=== PATIENT | female | born 1980 | race Caucasian/White ===

== ENCOUNTER 2021-03-19 02:27 | Emergency (ER) | payer OTHER, SELFPAY ==
[2021-03-19 02:28] VITALS: BP 143/88; PULSE 94; RESP 15; TEMP 37.2; O2SAT 100; BMI 28.5
--- NOTE | 2021-03-19 02:45 | EKG12_ITS ---
Test Reason : CP Blood Pressure : / mmHG Vent. Rate : 093 BPM Atrial Rate : 093 BPM P-R Int : 136 ms QRS Dur : 108 ms QT Int : 372 ms P-R-T Axes : 077 074 036 degrees QTc Int : 462 ms Normal sinus rhythm Nonspecific ST abnormality Abnormal ECG Confirmed by DIANELYS CERVANTES, KIM ([id number]), society editor NEAL RAMESH ([id number]) on 03/22/2021 2:50:42 PM Referred By: ÓSCAR Confirmed By:KIM IVORY MD
--- NOTE | 2021-03-19 02:46 | EDS_ITS ---
HPI History of Present Illness Chief Complaint: Chest Pain Informant: patient Onset/Context/Timing Onset: Month(s) (1) Activity at onset: gradual Timing: Intermittent Quality: Positive for Heaviness Location: Substernal Current Severity: Moderate Maximum Severity: Moderate Worsened By: - (Tonight worse by lying supine); Not Worsened By Breathing Relieved By: - (Sitting up) Associated Symptoms: Positive for Nausea and Dyspnea (A little); Negative for Vomiting, Diaphoresis, Cough, Fever, Lightheadedness and Palpitations Narrative Narrative: Chest discomfort has been off and on for the last month or so, it has been worse tonight. She noticed that it is better when she props herself up rather than lying down. Noticing some tingling in her fingers tonight, that is new. Has tried no medications for this prior to now except for Pepto which did not seem to make a big difference. Non-smoker, no recent travel or history of blood clots, no pain or swelling in 1 leg or the other, no family history of heart disease at young ages. CVD Risk Factors: Negative for Hypertension, Diabetes, Hypercholesterolemia, Family History 1' </=55 and Smoking PE Risk Factors: Negative for Recent Travel/Surgery, Recent Immobilization, Prior DVT or PE, Cancer and OCP + Smoking + >/=35 PFSH PFSH Medical History Mitral valve prolapse Home Medications bacitracin 1 applicatio TP TID #60 oint...g. 05/28/17 [Rx Last Taken Unknown] oxycodone-acetaminophen 1 - 2 tab PO Q4H PRN PRN #30 tab 05/28/17 [Rx Last Taken Unknown] pantoprazole [Protonix] 40 mg PO DAILY 28 Days #28 tab 03/19/21 [Rx Last Taken Unknown] Allergy/AdvReac Type Severity Reaction Status Date / Time No Known Allergies Allergy Verified 05/28/17 20:58 Social History Smoking Status: Never smoker ROS ROS ED Constitutional Constitutional ED: Denies chills or fever(s) Eyes Eyes: Denies change in vision or diplopia ENT ENT ED: Denies rhinorrhea or sore throat Cardiovascular Cardiovascular: Reports as per HPI and chest pain; Denies palpitations or racing heartbeat Respiratory/Chest Respiratory/Chest: Reports as per HPI and dyspnea; Denies cough Gastrointestinal Gastrointestinal: Denies abdominal pain, diarrhea, nausea or vomiting Genitourinary Genitourinary ED: Denies dysuria or hematuria Musculoskeletal Musculoskeletal: Denies back pain or neck pain Integumentary Denies abscess or rash Neurologic Neurologic: Denies headache(s) or weakness Psychiatric Psychiatric: Denies anxiety or suicidal thoughts EXAM Physical Exam Const Vital Signs: 03/19/21 02:28 03/19/21 02:34 03/19/21 03:24 Temperature 98.9 F Temperature Source Oral Pulse Rate 94 74 Respiratory Rate 15 22 H Respiratory Effort Normal Blood Pressure 143/88 H 113/81 H Blood Pressure Mean 106 91 Pulse Ox 100 99 Oxygen Delivery Method Room Air Room Air Positive well nourished and well developed General Appearance ED: well developed and NAD HEENT Reports moist mucous membranes normocephalic and atraumatic Eyes PERRL and EOMs intact bilaterally Neck full ROM and supple Resp normal respiratory effort and clear to auscultation bilaterally Cardio regular rate, regular rhythm and no murmurs Rate: Negative for tachycardic GI normal to inspection, nondistended, normoactive bowel sounds, non-tender and non-distended Auscultation: normoactive bowel sounds Palpation: soft Back/Spine no CVA tenderness General Back: other FROM Extremity normal to inspection and no calf tenderness General Extremety ED: Negative for edema, pulses abnormal or tenderness General Extremity: Negative for edema or pulses abnormal Neuro oriented x3, CN's II-XII intact bilaterally and no sensory deficits noted Sensorium / Orientation: awake and alert Motor Exam: strength 5/5 throughout Skin no rashes or lesions noted and no wounds Heart Score History: Moderately Suspicious ECG: Nonspecific Repolarization Age: </= 45 years Risk Factors: No Risk Factors Troponin: </= Normal Limit Score: 2 MDM MDM MDM Narrative Medical decision making narrative: Patient was given a GI cocktail which did improve her discomfort. It was still there a little. Given her negative work- up and symptoms that have been intermittent for several weeks, my suspicion is this is GI in etiology. She is low risk for follow-up. Her heart score is low, and given the symptoms for several weeks I do not think she needs to have a delta troponin tonight. She is comfortable taking a daily PPI and following up with her doctor. We discussed reasons to return. Lab Data Attestation: I reviewed the patient's lab results. Labs: Laboratory Results - last 24 hr 03/19/21 03/19/21 02:50 02:50 WBC 7.0 RBC 4.64 Hgb 14.5 Hct 41.6 MCV 89.7 MCH 31.3 MCHC 34.9 RDW Std Deviation 39.4 RDW Coeff of Julio C 12.1 Plt Count 313 MPV 9.3 Immature Gran % (Auto) 0.300 Neut % (Auto) 68.0 Lymph % (Auto) 22.6 [place] % (Auto) 7.1 Eos % (Auto) 1.4 Baso % (Auto) 0.6 Absolute Neuts (auto) 4.7 Absolute Lymphs (auto) 1.57 Nucleated RBC % 0 Sodium 139 Potassium 3.0 L Chloride 105 Carbon Dioxide 26.0 Anion Gap 8 BUN 10 Creatinine 0.86 Estim Creat Clear Calc 76.59 Est GFR (MDRD) Af Amer 95 Est GFR (MDRD) Non-Af 78 BUN/Creatinine Ratio 11.7 Glucose 113 H Calcium 9.8 Troponin I < 0.015 Radiography Chest X-Ray - ED: 1 View, Read by ED Physician, No Acute Disease and No Infiltrates Diagnostic Testing: Radiology Impression Chest X-Ray 03/19/21 03:37 IMPRESSION: Normal x-ray examination of the chest. Electronically Signed: Boris Manzo DO at 3:56 EDT Tel , Service support , EKG Initial EKG: Attestation: I personally reviewed and interpreted this EKG as follows: Interpretation: Sinus Rhythm, No Acute Injury Pattern and Non-Specific ST Changes (Leads V1 and II, and III, which can be normal variant. Normal axis and intervals.) Discharge Plan Triage Chief Complaint: Chest Pain ED Provider: Tomas Love Dx/Rx/DC Orders Clinical Impression: Chest pain, unspecified Instructions: ED Chest Pain, Noncardiac Prescriptions: New pantoprazole [Protonix] 40 mg tablet,delayed release (DR/EC) 40 mg PO DAILY 28 Days Qty: 28 RF: 0 No Action oxycodone-acetaminophen 1 TABLET tablet 1 - 2 tab PO Q4H PRN PRN (Reason: Pain) Qty: 30 RF: 0 bacitracin 28.4 GM ointment 1 applicatio TP TID Qty: 60 RF: 0 Primary Care Provider: Michael Bacon Referrals: Michael Bacon MD [Primary Care Provider] - 1-2 Weeks Disposition Disposition: Home, self care
[2021-03-19 02:57] LABS: Absolute Lymphocyte Count 1.57 X10^3/uL (0.83-4.51); Absolute Neutrophil Count 4.7 X10^3/uL (2.0-7.7); Basophil# 0.04 X10^3/uL; Basophil% 0.6 % (0-1); Eosinophils% 1.4 % (0-5); Hematocrit 41.6 % (37-47); Hemoglobin 14.5 g/dL (12.0-15.0); Lymphocyte # 1.57 X10^3/ul (0.83-4.51); Lymphocyte % 22.6 % (19-41); Mean Corp Hgb Conc 34.9 g/dL (32-36); Mean Corpuscular Hgb 31.3 pg (27.0-32.0); Mean Corpuscular Volume 89.7 fL (81-99); Mean Platelet Vol. 9.3 fl (6.2-12.0); Monocyte# 0.49 X10^3/uL; Monocyte% 7.1 % (0-10); NRBC Flagged by Analyzer 0 % (0-5); Neutrophil # 4.73 X10^3/uL (2.7-7.7); Platelet Count 313 K/mm3 (150-450); RBC Distribution Width CV 12.1 % (11.6-14.6); RBC Distribution Width SD 39.4 fl (35.1-43.9); Red Blood Count 4.64 M/mm3 (4.2-5.4)
[2021-03-19 03:14] LABS: Anion Gap 8 (5-15); BUN 10 mg/dL (7-18); BUN/Creat Ratio 11.7 RATIO (10-20); Calcium,Total 9.8 mg/dL (8.5-10.1); Chloride 105 mmol/L (98-107); Creatinine, Serum 0.86 mg/dL (0.55-1.02); EST Glomerular Filtration Rate 78 mL/min (>60); Est Glom Filt Rate - Afr Amer 95 mL/min (>60); Estimated Creatinine Clearance 76.59 ml/min; Glucose 113 mg/dL (74-106); Sodium Level 139 mmol/L (136-145)
[2021-03-19] MEDS: Mag Hydrox/Al Hydrox/Simeth 30 ML UDC PO (03:23)
[2021-03-19 03:24] VITALS: BP 113/81; PULSE 74; RESP 22; O2SAT 99
[2021-03-19] MEDS: Aspirin 81 MG TAB.CHEW 324 MG PO (03:24)
--- NOTE | 2021-03-19 03:37 | RAD_ITS ---
STUDY: X-RAY CHEST REASON FOR EXAM: Female, 40 years old. chest pain x 3 months. pt also states right rib pain for a few weeks after cleaning garage. TECHNIQUE: Single AP portable view of the chest. COMPARISON: None. FINDINGS: Calcified right midlung granuloma The lungs are clear and expanded. There is no demonstrated pleural abnormality. Normal size heart. Normal mediastinum and roslyn. Normal visualized pulmonary arteries. Normal visualized aortic arch and descending thoracic aorta. Normal visualized thoracic spine. Normal visualized ribs, clavicles, and shoulders. There is no demonstrated abnormality of the visualized soft tissue structures of the upper abdomen. RAD/Chest 1 View (Portable) IMPRESSION: Normal x-ray examination of the chest. Electronically Signed: Boris Manzo DO at 3:56 EDT Tel , Service support ,
[2021-03-19] MEDS: Pantoprazole Sodium 40 MG Tablet PO (04:24)
[2021-03-19 04:29] VITALS: BP 113/81; PULSE 72; RESP 13; O2SAT 97
== END 2021-03-19 04:47 | disposition home or self-care (01) ==
PROVIDERS: Emergency Provider Emergency Medicine; PCP Family Medicine
DX: R07.9 Chest pain, unspecified (principal)
CPT/HCPCS: 71045; 80048; 84484; 85025; 93005; 99284

== ENCOUNTER 2021-03-27 19:15 | Day surgery (SDC) | payer OTHER, SELFPAY ==
--- NOTE | 2021-03-27 | APP_PTH ---
PATIENT: WOODROW RIVERA LOC: [facility] [place] U#:[id number] AGE/SX: 40/F ROOM: RE03/27/[address]: Dr. Darlyn Schwarz MD : 1980 BED: DIS: 03/28/2021 SPEC #: [id number] RECD: 03/29/21 07:03 STATUS: JUNAID RESha #: [id number] HUSSEIN: 03/27/21 00:[address]: Darlyn Schwarz DEPT: SURGICAL PATHOLOGY RECD BY: Marvin Rollins ENTERED: 03/29/21 08:00 SP TYPE: APPENDIX OTHR DR: Dr. Cristian Middleton MD Tissues: Appendix, NOS Procedures: Surgery Specimen Level III HEADER OPERATION: Laparoscopic appendectomy PRE-OP DIAGNOSIS: Acute appendicitis TISSUE SUBMITTED: Appendix MICROSCOPIC DIAGNOSIS Appendix, appendectomy: Acute necrotizing appendicitis. Acute serositis. AM:caitie 03/30/2021 MICROSCOPIC DESCRIPTION Slides are reviewed. GROSS DESCRIPTION Received in fixative is one container labeled with the patient's name and designated appendix. The specimen consists of an appendix measuring 8 cm in length and up to 1 cm in diameter. The attached periappendiceal adipose tissue measures up to 2.5 cm in width. The appendix is disrupted 2.5 cm away from the tip most likely site of rupture. The serosal surface is covered with childers, purulent exudate. The mucosa is congested and hemorrhagic. No fecalith is identified. Emergency Room Registered Nurse sections are submitted in one cassette. / JENNIFER:caitie 03/29/21 TC:2 CPT: 77350
[2021-03-27 19:16] VITALS: BP 115/63; PULSE 84; RESP 16; TEMP 38.7; O2SAT 100; BMI 28.0
--- NOTE | 2021-03-27 20:03 | CT_ITS ---
We are attempting to reach an attending provider to discuss findings. An addendum with communication details will be sent when the communication is complete. HISTORY: Pelvic pain, fever, nausea and diarrhea EXAMINATION: CT Abdomen And Pelvis W/O Contrast Injection TECHNIQUE: Multiple axial images were obtained of the abdomen and pelvis without oral or IV contrast. A radiation dose optimization technique was used for this scan. IV Contrast dosage and agent: None. Oral contrast: None. COMPARISON: None FINDINGS: LOWER CHEST: Lung bases are clear. No cardiomegaly or pericardial effusion. LIVER: Homogeneous. No focal mass. GALLBLADDER AND BILIARY TREE: No calcified gallstones. No gallbladder distension or wall edema. No intra- or extrahepatic biliary ductal dilation. PANCREAS: No focal cystic or solid mass. SPLEEN: Normal size without focal cystic or solid mass. ADRENAL GLANDS: No nodules. KIDNEYS AND URETERS: Normal renal size and position. No hydronephrosis or nephrolithiasis. PERITONEUM: No ascites or free air. BOWEL: Large bowel in the left side of the abdomen with small bowel in the right side of the abdomen. Cecum located in the lower midabdomen with 12 mm dilatation of the appendix, wall thickening and mild adjacent stranding, 5 mm appendicolith at the origin of the appendix. Appendix is located in the lower pelvis transversely over the dome of the bladder. LYMPH NODES: No enlarged mesenteric or retroperitoneal lymph nodes. VESSELS: Aorta is non-dilated. URINARY BLADDER: Unremarkable. REPRODUCTIVE ORGANS: No pelvic masses. ABDOMINAL WALL: Small fat-containing periumbilical hernia. BONES: No acute or aggressive abnormality. 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 Acute appendicitis with the appendix located in the lower pelvis transversely over the dome of the bladder. Individualized dose optimization techniques were used for this CT. at 2124 Reported and signed by: Taiwo Campo MD Electronically Signed: Taiwo Campo MD at 21:23 EDT Tel , Service support ,
--- NOTE | 2021-03-27 20:04 | EDS_ITS ---
HPI HPI - GI History of Present Illness Chief Complaint: Abd Pain Detail of Chief Complaint: Abdominal pain that started this morning Informant: patient Abdominal Pain/Flank Pain Quality: Aching and Cramping Current Severity: 7/10 Nausea/Vomiting/Emesis GI Symptom: Positive for Nausea Diarrhea/Melena/Hematochezia GI Symptom: Negative for Diarrhea Stool Quality: Positive for Loose Narrative Narrative: Patient presents to the emergency department complaint of abdominal pain that started this morning. She currently rates it about a 6 or 7 out of 10 and is diffuse to the lower abdomen. Patient apparently has been having some chest pain issues and within the last 2 weeks she is had a work-up for her chest pain and 3 days ago had a ultrasound of the right upper quadrant to look at her gallbladder and apparently that was normal. Patient started with fever today and dysuria. She has had some mild frequency. Patient's had some nausea but no vomiting. Patient denies Covid symptoms and states that she did have Covid in September 2020. Patient's last menstrual period was end of February. Prior similar symptoms: No PFSH PFSH Medical History Mitral valve prolapse Home Medications bacitracin 1 applicatio TP TID #60 oint...g. 05/28/17 [Rx Last Taken Unknown] oxycodone-acetaminophen 1 - 2 tab PO Q4H PRN PRN #30 tab 05/28/17 [Rx Last Taken Unknown] pantoprazole [Protonix] 40 mg PO DAILY 28 Days #28 tab 03/19/21 [Rx Last Taken Unknown] Allergy/AdvReac Type Severity Reaction Status Date / Time No Known Allergies Allergy Verified 03/27/21 19:16 Social History Smoking Status: Never smoker ROS ROS ED Constitutional Constitutional ED: Reports systems reviewed and no addt'l complaints, except as documented and fever(s); Denies body ache(s), change in weight or chills Eyes Eyes: Denies acute decrease in peripheral vision, change in vision, double vision or loss of vision ENT ENT ED: Reports none; Denies ear pain, lip swelling, loss taste/smell, neck pain, otalgia or sore throat Cardiovascular Cardiovascular: Reports none; Denies abdominal pain, chest pain with activity, leg edema, lightheadedness, palpitations, rapid heart rate or syncope Respiratory/Chest Respiratory/Chest: Reports none; Denies change in mental status, dry cough, dyspnea, hemoptysis, shortness of breath at rest or shortness of breath with exertion Gastrointestinal Gastrointestinal: Reports none and nausea; Denies abdominal pain, change in stool character, diarrhea, hematemesis, hematochezia, melena, rectal bleeding or vomiting Genitourinary Genitourinary ED: Reports none, dysuria and urinary frequency; Denies abdominal discomfort, anuria, genital pain, hematuria or polyuria Musculoskeletal Musculoskeletal: Reports none; Denies arthralgias, back pain, difficulty walking, extremity pain, muscle weakness or myalgias Integumentary Reports none; Denies abscess or rash Neurologic Neurologic: Reports none; Denies abnormal gait, confusion, focal weakness, frequent falls, headache(s), loss of vision, numbness, paresthesias, radicular pain, vertigo or weakness Psychiatric Psychiatric: Reports systems reviewed and no addt'l complaints, except as documented and none; Denies behavioral changes, confusion, difficulty concentrating, hallucinations, suicidal ideation, tactile hallucinations or visual hallucinations Endocrine Endocrinology: Denies none, cold intolerance, excessive sweating, fatigue or heat intolerance Hematologic/Lymphatic Hematologic/Lymphatic: Reports none; Denies anemia, easy bleeding or easy bruising Allergic/Immunologic Allergic/Immunologic ED: Denies as per HPI, none, lip swelling, mouth swelling, throat swelling, tongue swelling or hives EXAM Physical Exam Const Vital Signs: 03/27/21 19:16 Temperature 101.6 F H Temperature Source Oral Pulse Rate 84 Respiratory Rate 16 Blood Pressure 115/63 Blood Pressure Mean 80 Pulse Ox 100 Oxygen Delivery Method Room Air Positive well nourished and well developed General Appearance ED: well developed and NAD HEENT Reports TM's clear and moist mucous membranes normocephalic and atraumatic; Negative for trauma or tenderness Tympanic Membrane ED: Yes TM's clear Eyes PERRL and EOMs intact bilaterally General Eye ED: Negative for pale conjunctiva or scleral icterus Neck no lymphadenopathy, supple and no JVD General: Negative for tenderness Chest Wall inspection of chest normal and palpation of chest normal Chest: Negative for tenderness Resp normal respiratory effort and clear to auscultation bilaterally Effort and Inspection: Negative for respiratory distress or pain with movement Auscultation: Negative for rhonchi, wheezes or diminished lung sounds Cardio regular rate, regular rhythm, S1 normal heart sound, S2 normal heart sound and no murmurs Peripheral Pulses: pulses 2+ throughout GI normal to inspection, nondistended, normoactive bowel sounds, soft to palpation, non-distended and no masses; Negative for non-tender Palpation: soft and tender LLQ, RLQ and suprapubic; Negative for rebound tenderness present Back/Spine no CVA tenderness and no thoracic nor lumbar tenderness Extremity normal to inspection General Extremety ED: Negative for edema General Extremity: Negative for edema Neuro oriented x3, CN's II-XII intact bilaterally, no sensory deficits noted and gait normal Sensorium / Orientation: awake, alert, oriented to person, oriented to place and oriented to time Motor Exam: strength 5/5 throughout and strength abnormal Psych mental status grossly normal Skin no rashes or lesions noted and no wounds MDM MDM MDM Narrative Medical decision making narrative: Case discussed with general surgeon on-call Dr. Darlny Schwarz who asked that I start patient on antibiotics that she will evaluate her in the department. Spoke with surgeon at 21:35 Lab Data Attestation: I reviewed the patient's lab results. Labs: Laboratory Results - last 24 hr 03/27/21 03/27/21 03/27/21 20:15 20:20 20:20 WBC 15.0 H RBC 4.58 Hgb 14.3 Hct 41.4 MCV 90.4 MCH 31.2 MCHC 34.5 RDW Std Deviation 41.1 RDW Coeff of Julio C 12.5 Plt Count 255 MPV 9.5 Immature Gran % (Auto) 0.400 Neut % (Auto) 89.7 H Lymph % (Auto) 4.3 L [place] % (Auto) 5.3 Eos % (Auto) 0.1 Baso % (Auto) 0.2 Absolute Neuts (auto) 13.5 H Absolute Lymphs (auto) 0.64 L Nucleated RBC % 0 Sodium 136 Potassium 3.5 Chloride 102 Carbon Dioxide 25.0 Anion Gap 9 BUN 12 Creatinine 0.89 Estim Creat Clear Calc 74.01 Est GFR (MDRD) Af Amer 91 Est GFR (MDRD) Non-Af 75 BUN/Creatinine Ratio 13.5 Glucose 107 H Calcium 8.7 Serum , Qual Urine Color Yellow Urine Clarity Clear Urine pH 5.0 Ur Specific [place] 1.015 Urine Protein Negative Urine Glucose (UA) Normal Urine Ketones Negative Urine Occult Blood 10 H Urine Nitrite Negative Urine Bilirubin Negative Urine Urobilinogen Normal Ur Leukocyte Esterase 25 H Urine RBC 0 SEEN Urine WBC 0-5 SEEN Ur Squamous Epith Cells 0-5 SEEN Urine Bacteria 1+ Urine Mucus 0 SEEN 03/27/21 20:20 WBC RBC Hgb Hct MCV MCH MCHC RDW Std Deviation RDW Coeff of Julio C Plt Count MPV Immature Gran % (Auto) Neut % (Auto) Lymph % (Auto) [place] % (Auto) Eos % (Auto) Baso % (Auto) Absolute Neuts (auto) Absolute Lymphs (auto) Nucleated RBC % Sodium Potassium Chloride Carbon Dioxide Anion Gap BUN Creatinine Estim Creat Clear Calc Est GFR (MDRD) Af Amer Est GFR (MDRD) Non-Af BUN/Creatinine Ratio Glucose Calcium Serum , Qual NEGATIVE Urine Color Urine Clarity Urine pH Ur Specific [place] Urine Protein Urine Glucose (UA) Urine Ketones Urine Occult Blood Urine Nitrite Urine Bilirubin Urine Urobilinogen Ur Leukocyte Esterase Urine RBC Urine WBC Ur Squamous Epith Cells Urine Bacteria Urine Mucus Radiography Diagnostic Testing: Radiology Impression Abdomen/Pelvis CT 03/27/21 20:03 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 Acute appendicitis with the appendix located in the lower pelvis transversely over the dome of the bladder. Individualized dose optimization techniques were used for this CT. at 2124 Reported and signed by: Taiwo Campo MD Electronically Signed: Taiwo Campo MD at 21:23 EDT Tel , Service support , Discharge Plan Triage Chief Complaint: Abd Pain ED Provider: Sue Hoskins Dx/Rx/DC Orders Clinical Impression: Acute appendicitis Prescriptions: No Action oxycodone-acetaminophen 1 TABLET tablet 1 - 2 tab PO Q4H PRN PRN (Reason: Pain) Qty: 30 RF: 0 bacitracin 28.4 GM ointment 1 applicatio TP TID Qty: 60 RF: 0 pantoprazole [Protonix] 40 mg tablet,delayed release (/EC) 40 mg PO DAILY 28 Days Qty: 28 RF: 0 Primary Care Provider: Cristian Middleton Referrals: Cristian Middleton MD [Primary Care Provider] - Disposition Disposition: Acute Care Hospital [facility]
[2021-03-27] MEDS: 0.9% Normal Saline 1,000 ML 1000 ML IV (20:17)
[2021-03-27] MEDS: Ondansetron 4 MG/2 ML Vial IV (20:18)
[2021-03-27 20:21] LABS: Mucous, Urine 0 SEEN /hpf (<or=2+); Red Blood Cells-Urine 0 SEEN /hpf (0-5)
[2021-03-27 20:25] LABS: Absolute Lymphocyte Count 0.64 X10^3/uL (0.83-4.51); Absolute Neutrophil Count 13.5 X10^3/uL (2.0-7.7); Basophil# 0.03 X10^3/uL; Basophil% 0.2 % (0-1); Eosinophil# 0.01 X10^3/uL; Eosinophils% 0.1 % (0-5); Hematocrit 41.4 % (37-47); Hemoglobin 14.3 g/dL (12.0-15.0); Lymphocyte # 0.64 X10^3/ul (0.83-4.51); Lymphocyte % 4.3 % (19-41); Mean Corp Hgb Conc 34.5 g/dL (32-36); Mean Corpuscular Hgb 31.2 pg (27.0-32.0); Mean Corpuscular Volume 90.4 fL (81-99); Mean Platelet Vol. 9.5 fl (6.2-12.0); Monocyte# 0.79 X10^3/uL; Monocyte% 5.3 % (0-10); NRBC Flagged by Analyzer 0 % (0-5); Neutrophil # 13.48 X10^3/uL (2.7-7.7); Neutrophil % 89.7 % (47-70); Platelet Count 255 K/mm3 (150-450); RBC Distribution Width CV 12.5 % (11.6-14.6); RBC Distribution Width SD 41.1 fl (35.1-43.9); Red Blood Count 4.58 M/mm3 (4.2-5.4)
[2021-03-27 20:25] LABS: Color, Urine Yellow (Yellow); Glucose, Dipstick Normal (Normal); Ketone-Dipstick Negative (Negative); Leukocyte Esterase-Dipstick 25 /ul (Negative); Nitrite-Dipstick Negative (Negative); Occult Blood-Urine 10 /ul (Negative); Protein-Dipstick Negative (Negative); Specific Gravity, Urine 1.015 (1.002-1.030); Urine Bilirubin Dipstick Negative (Negative); Urine Clarity Clear (Clear); Urine Urobilinogen Normal (Normal)
[2021-03-27 20:37] LABS: Internal QC Validated? YES +Cl - CLEAR BKGD; Pregnancy, Serum, hCG Quali. NEGATIVE Negative
[2021-03-27 20:39] LABS: Anion Gap 9 (5-15); BUN 12 mg/dL (7-18); BUN/Creat Ratio 13.5 RATIO (10-20); Calcium,Total 8.7 mg/dL (8.5-10.1); Chloride 102 mmol/L (98-107); Creatinine, Serum 0.89 mg/dL (0.55-1.02); EST Glomerular Filtration Rate 75 mL/min (>60); Est Glom Filt Rate - Afr Amer 91 mL/min (>60); Estimated Creatinine Clearance 74.01 ml/min; Glucose 107 mg/dL (74-106); Potassium 3.5 mmol/L (3.5-5.1); Sodium Level 136 mmol/L (136-145)
[2021-03-27 20:57] LABS: Bacteria 1+ /hpf (None Seen); Squamous Epithelial Cells - UA 0-5 SEEN /hpf (5-10); White Blood Cells 0-5 SEEN /hpf (0-5)
[2021-03-27] MEDS: Morphine 4 MG/ML Syringe IV (21:10)
[2021-03-27 22:14] VITALS: BP 105/71; PULSE 78; RESP 16; TEMP 36.6; O2SAT 98
[2021-03-27 22:40] VITALS: BP 108/74; PULSE 83; RESP 16; TEMP 36.6; O2SAT 99; BMI 28.0
--- NOTE | 2021-03-27 22:52 | PCM.HP.BLA ---
History and Physical Date of Admission: 03/27/21 Chief Complaint: abdominal pain History of Present Illness: 40 y/o WFpresents with sudden onset of lower abdominal pain. This began this morning She presented to [facility] ED because of worsening pain. She was found to have an elevated WBC of 15 with left shift of differential. CT scan revealed thickened appendix over the bladder with malrotation of intestines - right colon more of a midline structure. Past Medical History: acid reflux Past Surgical History: denies Medications: antacid medication Allergies: Has no known drug allergies Social history: TOB use denies Review of Systems: General - has fevers to 101F Cardiovascular denies chest pain, denies history of heart attack Pulmonary denies shortness of breath, denies coughing up blood Gastrointestinal as per HPI, denies blood in stools Neurological denies numbness/weakness of extremities, denies seizures Genitourinary denies burning with urination, denies blood in urine Hematological denies spontaneous/prolonged bleeding Skin denies open non healing wounds Musculoskeletal denies history of fractures Endocrine denies diabetes Psychological denies hallucinations Physical examination: Vital signs Temp 98F BP 108.74 HR 83 RR 16 General WD/WN WF in no apparent distress, alert and oriented, not septic appearing HEENT Normocephalic. EOM intact with sclera clear and no icterus noted. Neck is supple Lungs normal respiratory excursion, No labored breathing noted, such as retractions. No cough heard. Heart regular Abdomen soft but tender in the lower abdomen with rebound Extremities no pitting edema noted. . Genitourinary/Rectal deferred Skin no rashes noted. Normal skin integrity. Neurological non focal Psychological normal affect, patient is calm and appropriate Impression: acute appendicitis Discussion/Plant: I have discussed the above with the patient and her who is present with her I have reviewed the CT scan and findings are consistent with appendicitis. I have offered the patient the procedure of laparoscopic appendectomy. I have explained the procedure to the patient. I have counseled the patient as to the risks of the procedure, including but not limited to: infection, bleeding, injury to any blood vessels/nerves, scar tissue, injury to any intraabdominal organs, injury to kidney/ureters, injury to bowel/bladder, intraabdominal abscess/bleeding, hernias at incisional sites, wound infections, possible open procedure, complications of anesthesia, postoperative pneumonia/cardiac problems/blood clots etc. the patient understands. The patient was offered a surgery/procedure. The provider and patient have discussed in detail the risk of exposure to and/or potential harm posed by the COVID-19 virus with having a surgery/procedure at this time versus the risk of delaying the surgery/procedure. It is not possible to know either the risk of delaying the surgery or procedure or chance of getting an infection with perfect accuracy, but a joint decision was made between the patient and the provider to proceed at this time with the scheduled surgery/procedure. The patient agrees to proceed I have answered all questions to the patient?s satisfaction and the patient has no further questions .
[2021-03-27] MEDS: Bupivacaine 0.25%-Epi/Pf 1:200,000 10 ML (23:27)
[2021-03-28] VITALS (8 sets, daily range): BP systolic 98–108; BP diastolic 47–74; PULSE 67–87; RESP 16–18; TEMP 36.5–37; O2SAT 95–99; BMI 28.0
--- NOTE | 2021-03-28 00:11 | PCM.OPRPT ---
Report of Operation Date of Procedure: 03/27/21 Pre-Operative Diagnosis: acute appendicitis Post-Operative Diagnosis: same Surgery/Procedure Performed:: laparoscopic appendectomy Description of Surgical Findings:: acute appendicitis, surrounding cloudy peritoneal fluid - purulent appearing, not perforated appendix Surgeon: Darlyn Schwarz Type of Anesthesia: General Anesthesiologist: Reshma Plaza Specimen's removed: appendix Drains: none Estimated Blood Loss (mL): < 10 ml Fluids Replaced: 1000 ml RL Description of Procedure: After informed consent was obtained, the patient was brought into the Operating Room. Appropriate time out protocol was followed. The patient was placed in the supine position on the operating table. The patient was then placed under general anesthesia by the anesthesia provider. The patient?s abdomen was then prepped with a sterile surgical skin preparation and sterile surgical drapes were placed. The infraumbilical skin fold was grasped with penetrating towel clamps and the skin and subcutaneous tissues were infiltrated with 0.25% marcaine with epinephrine. A incision was then made with a 15 blade scalpel. A Veress needle was then inserted into the intraabdominal cavity and checked to be in the proper position with a normal saline drop test. A CO2 pneumoperitoneum was then created. Once this was achieved, the Veress needle was removed and an 12 mm trocar was placed in its stead. A 5 mm laparoscope was then inserted into the trocar. Careful examination of the intraabdominal contents was then done. There was no evidence of injury to any internal organs from placement of the Veress needle or the trocar. Under direct visualization, a 5mm left lower latera trocar and a 5mm right lower quadrant trocar was then placed into the intraabdominal cavity. The skin and subcutaneous tissues at these sites were first infiltrated with 0.25% marcaine with epinephrine. Attention was then directed to the intraabdominal contents. The patient had non retroperitonealized right colon and it appeared as a midline structure. The appendix was draped over the bladder dome in the midline. It was grossly distended swollen and erythematous. There was fibrinous exudate surrounding it and the surrounding fat was inflamed. The mesentery of the appendix was taken down by cauterizing the tissue from the free edge to the base of the appendix using the Harmonic scalpel. Once the base of the appendix was freed of surrounding tissues, then the linear gastrointestinal stapling device was brought into the abdominal cavity via the 12mm port and placed across the base of the appendix. The stapling device was fired, thus stapling across the base of the appendix and transecting it simultaneously. There was no evidence of perforation of the appendix. There was cloudy/purulent peritoneal fluid noted in the pelvis. The pelvic cavity was vigorously irrigated with normal saline and all irrigant was aspirated out. The appendix was placed in an Endobag and this was brought out through the suprapubic trocar. The appendix was forwarded to Pathology for analysis. The appendiceal stump was carefully examined. There was no evidence of any active bleeding or fecal leakage. The surrounding tissues were also examined and there was no evidence of any active bleeding or fecal/bile leakage. The intraabdominal cavity was examined and there was no evidence of any further inflammation or tissue abnormality. The CO2 pneumoperitoneum was released and all trocars were removed intact. The periumbilical fascia was reapproximated with a figure-of-8 vicryl suture. All skin incisions were reapproximated with monocryl suture. Cavilon and steristrips were applied to reinforce skin closure and proper sterile dressings were placed. Sponge, needle, and instrument count were verified and correct at the time of skin closure. The patient was then extubated and brought to the Recovery Room in stable condition. Procedure Start Time: 23:24 Procedure Stop Time: 00:11 Complications none noted Admit VTE Documentation VTE Present on Admission: Yes VTE Mechan Device Prophylaxis: SCD's
[2021-03-28] MEDS: Lactated Ringers 1,000 ML 100 ML IV (00:35)
[2021-03-28] MEDS: 0.9% Normal Saline 1,000 ML 100 ML IV (09:35)
[2021-03-28] MEDS: Acetaminophen 500 MG Tablet PO (09:36)
--- NOTE | 2021-03-28 09:44 | PN.SURG_ITS ---
Subjective Subjective patient feels much improved than from prior to admission Objective Data Objective Data Vital Signs: Vital Signs Temp Pulse Resp BP Pulse Ox 98.2 F 71 18 98/47 L 99 03/28/21 08:50 03/28/21 08:50 03/28/21 08:50 03/28/21 08:50 03/28/21 08:50 Oxygen Delivery Method Room Air Weight: 74.077 kg Body Mass Index (BMI) 28.0 Intake & Output: Intake and Output for Last 24 Hours 03/26/21 03/27/21 03/28/21 23:59 23:59 23:59 Intake Total 1635 / 1635 Balance 1635 / 1635 Lab / Micro Data Result Diagrams: 03/27/21 20:20 03/27/21 20:20 Labs: Laboratory Results - last 24 hr 03/27/21 03/27/21 03/27/21 20:15 20:20 20:20 WBC 15.0 H RBC 4.58 Hgb 14.3 Hct 41.4 MCV 90.4 MCH 31.2 MCHC 34.5 RDW Std Deviation 41.1 RDW Coeff of Julio C 12.5 Plt Count 255 MPV 9.5 Immature Gran % (Auto) 0.400 Neut % (Auto) 89.7 H Lymph % (Auto) 4.3 L [place] % (Auto) 5.3 Eos % (Auto) 0.1 Baso % (Auto) 0.2 Absolute Neuts (auto) 13.5 H Absolute Lymphs (auto) 0.64 L Nucleated RBC % 0 Sodium 136 Potassium 3.5 Chloride 102 Carbon Dioxide 25.0 Anion Gap 9 BUN 12 Creatinine 0.89 Estim Creat Clear Calc 74.01 Est GFR (MDRD) Af Amer 91 Est GFR (MDRD) Non-Af 75 BUN/Creatinine Ratio 13.5 Glucose 107 H Calcium 8.7 Serum , Qual Urine Color Yellow Urine Clarity Clear Urine pH 5.0 Ur Specific [place] 1.015 Urine Protein Negative Urine Glucose (UA) Normal Urine Ketones Negative Urine Occult Blood 10 H Urine Nitrite Negative Urine Bilirubin Negative Urine Urobilinogen Normal Ur Leukocyte Esterase 25 H Urine RBC 0 SEEN Urine WBC 0-5 SEEN Ur Squamous Epith Cells 0-5 SEEN Urine Bacteria 1+ Urine Mucus 0 SEEN 03/27/21 20:20 WBC RBC Hgb Hct MCV MCH MCHC RDW Std Deviation RDW Coeff of Julio C Plt Count MPV Immature Gran % (Auto) Neut % (Auto) Lymph % (Auto) [place] % (Auto) Eos % (Auto) Baso % (Auto) Absolute Neuts (auto) Absolute Lymphs (auto) Nucleated RBC % Sodium Potassium Chloride Carbon Dioxide Anion Gap BUN Creatinine Estim Creat Clear Calc Est GFR (MDRD) Af Amer Est GFR (MDRD) Non-Af BUN/Creatinine Ratio Glucose Calcium Serum , Qual NEGATIVE Urine Color Urine Clarity Urine pH Ur Specific [place] Urine Protein Urine Glucose (UA) Urine Ketones Urine Occult Blood Urine Nitrite Urine Bilirubin Urine Urobilinogen Ur Leukocyte Esterase Urine RBC Urine WBC Ur Squamous Epith Cells Urine Bacteria Urine Mucus Micro: Microbiology 03/27/21 21:58 Mucosa - Nasopharyngeal SARS-CoV-2 Antigen (Rapid) - Final Radiography Diagnostic Testing: Radiology Impression Abdomen/Pelvis CT 03/27/21 20:03 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 Acute appendicitis with the appendix located in the lower pelvis transversely over the dome of the bladder. Individualized dose optimization techniques were used for this CT. 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 Acute appendicitis with the appendix located in the lower pelvis transversely over the dome of the bladder. Individualized dose optimization techniques were used for this CT. at 2124 Reported and signed by: Taiwo Campo MD N.B. : The above information has been verbally conveyed by Taiwo Campo MD to Sue Oropeza MD, on 03/27/2021 21:36:39 (ET). Electronically Signed: Taiwo Campo MD at 21:23 EDT Tel , Service support , Physical Exam Narrative abdomen is soft and benign dressings intact, minimal staining
--- NOTE | 2021-03-28 09:48 | DCINST_ITS ---
Discharge Instructions Follow Up Care Test Results: Test results from this visit will be discussed in further detail at your follow-up appointment, if applicable. Discharge Plan Admission Attending Provider: Darlyn Schwarz Primary Care Provider: Cristian Middleton Instructions Patient Instructions: ED Chest Pain, Noncardiac Additional Instructions / Restrictions: Recommended pain control regimen - May take 600 mg ibuprofen (Motrin) and then in 3-4 hours, may take 650 mg acetaminophen (Tylenol), then in 3-4 hours may take 600 mg ibuprofen, then in 3- 4 hours may take 650 mg acetaminophen and so on for 2-3 days May take narcotic pain medication for pain that is not controlled by above and at night for comfort through the night Leave dressings in place May get dressings wet in shower - do not scrub in the area and pat dry Do not soak - no tub baths/swimming Ice applied to areas of discomfort may help Avoid carbonated beverages for a couple of days as this may cause abdominal bloating and add to your discomfort after surgery No lifting/pushing/pulling greater than 20 pounds for a month. Please call for a follow up appointment in 1-2 weeks, Some bleeding may appear on the bandages, do not remove unless they become saturated. If bleeding continues - apply pressure for 30 minutes, if there is still bleeding after this call the hospital electric shipyard operator and ask them to page me, thank you Discharge Orders/Prescriptions Prescriptions: New hydrocodone-acetaminophen 5-325 mg tablet 1 tab PO Q8H 5 Days Qty: 15 RF: 0 No Action pantoprazole [Protonix] 40 mg tablet,delayed release (DR/EC) 40 mg PO DAILY 28 Days Qty: 28 RF: 0 Referrals / Follow Up: Cristian Middleton MD [Primary Care Provider] - Disposition Discharge Orders: Discharge Patient (Routine); Ordered 03/28/21 Ordered By: Dr. Darlyn Schwarz
== END 2021-03-28 10:54 | disposition home or self-care (01) ==
LOC: ED 21:39 → SDC 22:01 → MS3 03-28 10:38
PROVIDERS: Emergency Provider Emergency Medicine; PCP Family Medicine; Visit Provider Surgery
PROC: 0DTJ4ZZ Resection of Appendix, Percutaneous Endoscopic Approach (ICD-10-PCS; CPT 44970; principal; 2021-03-27 22:00)
DX: K35.33 Acute appendicitis with perforation, localized peritonitis, and gangrene, with abscess (principal)
CPT/HCPCS: 44970; 74176; 80048; 81001; 84703; 85025; 87426; 88304; 99284; J7030; J7040; J7120; A4216; J2405

== ENCOUNTER → 2021-08-23 | Outpatient (CLI) | payer OTHER, SELFPAY ==
[2021-08-27 13:25] LABS: HPV APTIMA, High Risk Negative (Negative)
== END | disposition home or self-care (01) ==
LOC: LABSPEC 16:08
PROVIDERS: PCP Family Medicine; Visit Provider Nurse Practitioner Women's Health
DX: Z01.419 Encounter for gynecological examination (general) (routine) without abnormal findings (principal)
CPT/HCPCS: 87624; 88175; G0145

== ENCOUNTER 2022-07-03 13:37 | Emergency (ER) | payer OTHER, SELFPAY ==
[2022-07-03 13:38] VITALS: BP 179/93; PULSE 102; RESP 18; TEMP 37.2; O2SAT 93; BMI 27.2
--- NOTE | 2022-07-03 13:59 | CT_ITS ---
STUDY: CT BRAIN WITHOUT CONTRAST REASON FOR EXAM: Female, 42 years old. left arm numbness RADIATION DOSAGE (If Supplied By Facility): CTDIvol = ( 44.99 ) mGy, DLP = ( 745.49 ) mGycm TECHNIQUE: Transaxial CT imaging of the brain was performed without administration of intravenous contrast material. Individualized dose optimization techniques were used for this CT. COMPARISON: No relevant priors. FINDINGS: Normal soft tissue structures. Normal calvarium. Normal size ventricles and extra-axial spaces for the patient''s age. Normal white matter tracts of the cerebral hemispheres. Normal basal ganglia and thalami. Normal brainstem. Normal cerebellum. There is no intracranial hemorrhage. There are no findings of an acute ischemic infarction. Normal visualized paranasal sinuses. CT/Brain/Head without Contrast IMPRESSION: Normal unenhanced CT scan of the brain. Electronically Signed: Saad Morales MD at 15:10 EDT ,
--- NOTE | 2022-07-03 13:59 | EKG12_ITS ---
Test Reason : Blood Pressure : / mmHG Vent. Rate : 086 BPM Atrial Rate : 086 BPM P-R Int : 140 ms QRS Dur : 104 ms QT Int : 382 ms P-R-T Axes : 080 065 050 degrees QTc Int : 457 ms Normal sinus rhythm Normal ECG Confirmed by DIANELYS CERVANTES, KIM ([id number]), society editor NEAL RAMESH ([id number]) on 07/05/2022 7:33:33 AM Referred By: CONNIE Confirmed By:KIM IVORY MD
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
--- NOTE | 2022-07-03 14:21 | RAD_ITS ---
STUDY: X-RAY CHEST REASON FOR EXAM: Female, 42 years old. chest pain TECHNIQUE: Single AP portable view of the chest. COMPARISON: 03/19/2021 FINDINGS: The lungs are clear and expanded. There is no demonstrated pleural abnormality. Normal size heart. Normal mediastinum and roslyn. Normal visualized pulmonary arteries. Normal visualized aortic arch and descending thoracic aorta. Normal visualized thoracic spine. Normal visualized ribs, clavicles, and shoulders. There is no demonstrated abnormality of the visualized soft tissue structures of the upper abdomen. RAD/Chest 1 View (Portable) IMPRESSION: Normal x-ray examination of the chest. Electronically Signed: Saad Morales MD at 14:33 EDT ,
[2022-07-03 14:28] LABS: Absolute Lymphocyte Count 1.75 X10^3/uL (0.83-4.51); Absolute Neutrophil Count 6.2 X10^3/uL (2.0-7.7); Basophil# 0.05 X10^3/uL; Basophil% 0.6 % (0-1); Eosinophil# 0.11 X10^3/uL; Eosinophils% 1.3 % (0-5); Hematocrit 42.4 % (37-47); Hemoglobin 14.5 g/dL (12.0-15.0); Lymphocyte # 1.75 X10^3/ul (0.83-4.51); Lymphocyte % 20.4 % (19-41); Mean Corp Hgb Conc 34.2 g/dL (32-36); Mean Corpuscular Hgb 31.1 pg (27.0-32.0); Mean Platelet Vol. 9.7 fl (6.2-12.0); Monocyte# 0.41 X10^3/uL; Monocyte% 4.8 % (0-10); NRBC Flagged by Analyzer 0 % (0-5); Neutrophil # 6.22 X10^3/uL (2.7-7.7); Neutrophil % 72.7 % (47-70); Platelet Count 312 K/mm3 (150-450); RBC Distribution Width CV 12.1 % (11.6-14.6); RBC Distribution Width SD 40.6 fl (35.1-43.9); Red Blood Count 4.66 M/mm3 (4.2-5.4); White Blood Count 8.6 K/mm3 (4.4-11.0)
[2022-07-03 14:45] LABS: Anion Gap 7 (5-15); BUN 14 mg/dL (7-18); BUN/Creat Ratio 16.7 RATIO (10-20); Calcium,Total 9.1 mg/dL (8.5-10.1); Chloride 108 mmol/L (98-107); Creatinine, Serum 0.84 mg/dL (0.55-1.02); EST Glomerular Filtration Rate 80 mL/min (>60); Est Glom Filt Rate - Afr Amer 97 mL/min (>60); Estimated Creatinine Clearance 76.88 ml/min; Glucose 109 mg/dL (74-106); Potassium 3.4 mmol/L (3.5-5.1); Sodium Level 141 mmol/L (136-145); Troponin-I HS (w/2H Reflex) < 3 pg/mL (3.0-54.0)
[2022-07-03] MEDS: Ketorolac 30 MG/ML Syringe IV (15:31)
[2022-07-03] MEDS: Ondansetron 4 MG/2 ML Vial IV (15:32)
[2022-07-03 16:25] LABS: Reflex Troponin-HS? (from REC) Y
== END 2022-07-03 16:04 | disposition home or self-care (01) ==
PROVIDERS: Emergency Provider Emergency Medicine; Visit Provider Emergency Medicine
DX: R51.9 Headache, unspecified (principal); R20.2 Paresthesia of skin
CPT/HCPCS: 70450; 71045; 80048; 84484; 85025; 93005; 96374; 96375; 99285; A4216; J2405

== ENCOUNTER → 2022-08-24 | Outpatient (CLI) | payer OTHER, SELFPAY ==
--- NOTE | 2022-08-24 10:06 | ECHOD_ITS ---
Reason For Study: MVP, PALPITATIONS Procedure This was a 2D Doppler, Color Flow transthoracic echocardiogram. The exam was of adequate technical quality. Exam performed in department. Left Ventricle Normal LV size. Apical false tendon noted. Left ventricular systolic function is normal. The estimated ejection fraction is 65 %. No evidence for diastolic dysfunction. No regional wall motion abnormalities noted. Right Ventricle Normal RV size. Normal systolic function. Atria Normal left atrium. Normal right atrium. No doppler evidence for ASD. Mitral Valve There is no mitral annular calcification. Normal mitral valve. Trivial mitral valve insufficiency. Tricuspid Valve Normal tricuspid valve. Trivial tricuspid valve insufficiency. Unable to estimate RV systolic pressure due to insufficient tricuspid regurgitant envelope. Aortic Valve Trisinus/trileaflet aortic valve. Normal aortic valve. Pulmonic Valve The pulmonic valve is not well visualized. Trivial pulmonic valve insufficiency. Great Vessels Normal aortic root. Pericardium/Pleural No pericardial effusion. MMode/2D Measurements & Calculations LVIDd: 4.5 cm IVSd: 0.91 cm Ao root diam: 2.7 cm LVIDs: 2.8 cm LVPWd: 0.91 cm RVDd: 2.5 cm FS: 38.5 % LAV(MOD-bp): 42.1 ml LVAd ap4: 25.1 cm2 LVAd ap2: 24.8 cm2 LAV(MOD-bp) Indexed: 24.0 ml/m2 LVLd ap4: 7.1 cm LVLd ap2: 6.9 cm LAV(MOD-sp2): 42.6 ml EDV(MOD-sp4): 74.9 ml EDV(MOD-sp2): 75.3 ml LAV(MOD-sp4): 40.7 ml EDV(sp4-el): 75.0 ml EDV(sp2-el): 75.1 ml LVAs ap4: 12.7 cm2 LVAs ap2: 12.8 cm2 LVLs ap4: 5.2 cm LVLs ap2: 5.1 cm ESV(MOD-sp4): 28.0 ml ESV(MOD-sp2): 27.3 ml ESV(sp4-el): 26.6 ml ESV(sp2-el): 27.1 ml EF(MOD-sp4): 62.7 % EF(MOD-sp2): 63.7 % EF(sp4-el): 64.6 % SV(MOD-sp4): 46.9 ml SV(MOD-sp2): 48.0 ml SV(sp4-el): 48.5 ml LA dimension(2D): 2.9 cm LA A4 area: 15.2 cm2 RA A4 area: 12.7 cm2 Time Measurements MV dec time: 0.19 sec Doppler Measurements & Calculations MV E max tramaine: 68.4 cm/sec Lat Peak E' Tramaine: 10.2 cm/sec Med Peak E' Tramaine: 10.2 cm/sec MV A max tramaine: 59.1 cm/sec E/E' lat: 6.7 E/E' med: 6.7 MV E/A: 1.2 MV dec slope: 361.4 cm/sec2 Ao V2 max: 113.8 cm/sec LV V1 max: 111.9 cm/sec Ao max P.2 mmHg LV V1 max P.0 mmHg PA V2 max: 97.2 cm/sec PI dec slope: 135.3 cm/sec2 ECHO/Echo Complete Interpretation Summary Left ventricular systolic function is normal. The estimated ejection fraction is 65 %. Apical false tendon noted. Trivial mitral valve insufficiency. Trivial tricuspid valve insufficiency. Trivial pulmonic valve insufficiency. Unable to estimate RV systolic pressure due to insufficient tricuspid regurgita nt envelope. No evidence for diastolic dysfunction. Ordering Physician: Mirna Hillman Referring Physician: Mirna Hillman Performed By: Santa Cox RDCS, RVT
== END | disposition home or self-care (01) ==
LOC: CVS 10:05
PROVIDERS: Referring Provider Internal Medicine; Visit Provider Internal Medicine
DX: R00.2 Palpitations (principal); I34.1 Nonrheumatic mitral (valve) prolapse
CPT/HCPCS: 93306

== ENCOUNTER → 2022-11-21 | Outpatient (CLI) | payer OTHER, SELFPAY ==
--- NOTE | 2022-11-21 11:55 | BI_ITS ---
MAMMOGRAPHY - BILATERAL SCREENING REASON FOR EXAM: Female, 42 years old. Routine annual screening examination. PERTINENT HISTORY: Grandmother with breast cancer. TECHNIQUE: Digital bilateral breast jonathan (3D mammographic acquisition) in the CC and MLO projections. 2-D mediolateral oblique (MLO) and craniocaudad (CC) views of both breasts were obtained. CAD: Full Field Digital Mammography with Computer Added Detection was performed. COMPARISON: None. Baseline examination. FINDINGS: Breast Composition: There are scattered areas of fibroglandular density. There are no dominant masses or suspicious calcifications. No other significant abnormalities are identified. There has been no significant change since the prior study. BI/SCRN MAMM (CAD)W/JONATHAN BILAT IMPRESSION: Stable bilateral screening mammogram. Yearly follow-up mammogram recommended. (A) ASSESSMENT CATEGORY: BIRADS Category 1: Negative. A letter regarding these results will be sent to the patient by the facility within 30 days. Approximately 10% of breast cancers are not detected by mammography. A normal mammogram should not delay biopsy of a clinically suspicious abnormality. [id number] Electronically Signed: Arnold Stanton MD at 13:16 EST ,
== END | disposition home or self-care (01) ==
LOC: OPBI 11:54
PROVIDERS: Visit Provider Nurse Practitioner Women's Health
DX: Z12.31 Encounter for screening mammogram for malignant neoplasm of breast (principal)
CPT/HCPCS: 77063; 77067

== ENCOUNTER → 2023-11-30 | Outpatient (CLI) | payer OTHER, SELFPAY ==
--- NOTE | 2023-11-30 11:56 | BI_ITS ---
MAMMOGRAPHY - BILATERAL SCREENING REASON FOR EXAM: Female, 43 years old. Routine annual screening examination. PERTINENT HISTORY: Grandmother with breast cancer. TECHNIQUE: Digital bilateral breast jonathan (3D mammographic acquisition) in the CC and MLO projections. 2-D mediolateral oblique (MLO) and craniocaudad (CC) views of both breasts were obtained. CAD: Full Field Digital Mammography with Computer Added Detection was performed. COMPARISON: Comparison is made with prior study dated May 21, 2023. FINDINGS: Breast Composition: There are scattered areas of fibroglandular density. There are no dominant masses or suspicious calcifications. No other significant abnormalities are identified. There has been no significant change since the prior study. BI/SCRN MAMM (CAD)W/JONATHAN BILAT IMPRESSION: Stable bilateral screening mammogram. Yearly follow-up mammogram recommended. (A) ASSESSMENT CATEGORY: BIRADS Category 1: Negative. A letter regarding these results will be sent to the patient by the facility within 30 days. Approximately 10% of breast cancers are not detected by mammography. A normal mammogram should not delay biopsy of a clinically suspicious abnormality. [id number] Electronically Signed: Arnold Stanton MD at 13:46 EST ,
--- OUTSIDE RECORDS SUMMARY | 2023-11-30 12:19 | XMS RPT_ITS | CCD ---
Author Name Unknown Address [address] [place] [address] Organization [facility] Care Team Providers Care Project Manager Retail Name Role Phone Mirna Hillman MD Primary Care Provider MIRNA HILLMAN Primary Care Unavailable MIRNA HILLMAN Primary Care Unavailable MIRNA HILLMAN Primary Care Unavailable MIRNA HILLMAN Primary Care Unavailable Allergies Allergy Classification Reported Allergen(s) Allergy Type Date of Onset Reaction(s) Facility (3 sources) Seasonal allergy; Translations: [SEASONAL ALLERGIES] Allergy to substance 3 Other: See Comments [facility] Work Phone: Medications Current Medications Medication Drug Class(es) Dates Sig (Normalized) Sig (Original) amoxicillin 875 mg / clavulanate 125 mg oral tablet (1 source) Penicillin-class Antibacterial Start: 05-18-2022 End: 05-23-2022 take 1 tablet by mouth twice daily amoxicillin-clav ulanic acid (AUGMENTIN) 875-125 mg per tablet Take 1 tablet by mouth twice daily for 5 days. 10 tablet 0 05/18/2022 05/23/2022 Active Completed/Discontinued Medications Medication Drug Class(es) Dates Sig (Normalized) Sig (Original) DOCOSAHEXANOIC ACID (DHA ORAL) (2 sources) DOCOSAHEXANOIC A ABIGAIL (DHA ORAL) Take by mouth. 0 Active Problems Problem Classification Problem Date Documented Da te Episodic/Chronic E Codes: Natural/environment (1 source) Cat bite - wound; Translations: [Bitten by cat, initial encounter] Episodic Other upper respiratory infections (1 source) Sore throat symptom; Translations: [Acute pharyngitis, unspecified] Episodic Results Test Name Value Interpretation Reference Range Facil ity Vital Signs Date Time Vital Sign Value Performing Clinician Faci lity 12-08-2022 09:26-0500 Body temperature 96.3 [degF] Zoë Nate E COMMERCE MANAGER.SLASHER TENDER Work Phone: [facility] 12-08-2022 09:26-0500 Body weight 74.03 kg Zoë King E COMMERCE MANAGER.SLASHER TENDER Work Phone: [facility] 12-08-2022 09:26-0500 Diastolic blood pressure 64 mm[Hg] Zoë Nate E COMMERCE MANAGER.SLASHER TENDER Work Phone: [facility] 12-08-2022 09:26-0500 Heart rate 75 /min Zoë Nate E COMMERCE MANAGER.SLASHER TENDER Work Phone: [facility] 12-08-2022 09:26-0500 Respiratory rate 21 /min Zoë Nate E COMMERCE MANAGER.SLASHER TENDER Work Phone: [facility] 12-08-2022 09:26-0500 SaO2% (BldA) [Mass fraction] 97 % Zoë Sullivan E COMMERCE MANAGER.SLASHER TENDER Work Phone: [facility] 12-08-2022 09:26-0500 Systolic blood pressure 108 mm[Hg] Zoë Nate E COMMERCE MANAGER.SLASHER TENDER Work Phone: [facility] 05-18-2022 09:11-0400 Body temperature 97.9 [degF] Alcira Maggi E COMMERCE MANAGER.SLASHER TENDER Work Phone: [facility] 05-18-2022 09:11-0400 Body weight 70.76 kg Alcira Tay E COMMERCE MANAGER.SLASHER TENDER Work Phone: [facility] 05-18-2022 09:11-0400 Diastolic blood pressure 72 mm[Hg] Alcira Pendlebury E COMMERCE MANAGER.SLASHER TENDER Work Phone: [facility] 05-18-2022 09:11-0400 Heart rate 90 /min Alcira Pendlebury E COMMERCE MANAGER.SLASHER TENDER Work Phone: [facility] 05-18-2022 09:11-0400 Respiratory rate 16 /min Alcira Pendlebury E COMMERCE MANAGER.SLASHER TENDER Work Phone: [facility] 05-18-2022 09:11-0400 SaO2% (BldA) [Mass fraction] 99 % Alcira Tay APRN.CNP Work Phone: [facility] 05-18-2022 09:11-0400 Systolic blood pressure 122 mm[Hg] Alcira Tay APRN.CNP Work Phone: [facility] Encounters Encounter Date Encounter Type Care Provider Facility Start: 11-20-2023 End: 11-20-2023 ambulatory [facility] Facility:[facility] Start: 11-14-2023 End: 11-14-2023 [facility] Facility:[facility] Start: 06-30-2023 End: 06-30-2023 ambulatory [facility] Facility:[facility] Start: 12-08-2022 End: 12-08-2022 [facility] Facility:[facility] Start: 12-08-2022 End: 12-08-2022 Patient encounter procedure Zoë Sullivan APRN.CNP Work Phone: [facility] Procedures Date Procedure Procedure Detail Performing Clinician Start: 12-08-2022 STREP A MOLECULAR (POC) Zoë Sullivan APRN.CNP Work Phone: Plan of Treatment Date Care Activity Detail Author Start: 05-18-2032 Urine microalbumin profile DTA P,TDAP,TD (4 - Td or Tdap) [facility] Start: 11-06-2022 DEPRESSION ASSESSMENT DEPRESSION ASS ESSMENT [facility] Start: 07-07-2022 Influenza vaccination INFLUENZA (#1) [facility] Start: 2022 Mammography MAMMOGRAM [facility] Start: 04-07-2020 HPV TESTING HPV TESTING [facility] Start: 04-07-2020 PAP TESTING PAP TESTING [facility] Start: 2000 HEPATITIS C SCREENING HEPATITIS C SC REENING [facility] Start: 1994 Adult depression scr eening assessment DEPRESSION SCREENING [facility] Start: 1982 COVID-19 VACCINE (#1) COVID-19 VACCI NE (#1) [facility] Start: 1982 HEPATITIS B (1 of 3 - 3-dose series) HEPATITIS B (1 of 3 - 3-dose series) [facility] Immunizations Immunization Date Immunization Notes Care Provider Fabiola eva 05-18-2022 tetanus toxoid, reduced diphtheria toxoid, and acellular pertussis vaccine, adsorbed Alcira Pendlebury E COMMERCE MANAGER.SLASHER TENDER Work Phone: [facility] 09-26-2016 tetanus toxoid, reduced diphtheria toxoid, and acellular pertussis vaccine, adsorbed Alcira Pendlebury E COMMERCE MANAGER.SLASHER TENDER Work Phone: [facility] 08-05-2016 influenza, injectabl e, quadrivalent, contains preservative Alcira Pendlebury E COMMERCE MANAGER.SLASHER TENDER Work Phone: [facility] 04-08-2013 tetanus toxoid, reduced diphtheria toxoid, and acellular pertussis vaccine, adsorbed Alcira Pendlebury E COMMERCE MANAGER.SLASHER TENDER Work Phone: [facility] 11-20-2012 influenza virus vaccine, unspecified formulation Alcira Pendgila E COMMERCE MANAGER.SLASHER TENDER Work Phone: [facility] Work Phone: Payers Date Payer Category Payer Private Health Insurance [employer] [facility] [id number] 2022-Present [phone] [address] [place] [address] PPO [id number] 2022 Unknown [id number] 2021 Unknown [facility] [id number] 2021-Present [phone] [address] [place] [address] Indemnity [id number] Social History Date Type Detail Facility Start: 12-08-2022 Tobacco smoking status NHIS Never smoked tobacco [facility] Work Phone: Start: 05-18-2022 End: 12-08-2022 Alcohol intake Current drinker of alcohol (finding) [facility] Start: 11-20-2012 History SDOH Alcohol Comment OCCASIONALLY ONCE A WEEK, BUT NOT WHILE [facility] Start: 1982 Sex Assigned At Not on file [facility] Start: 05-08-2022 End: 05-18-2022 Exposure to SARS-CoV-2 (event) Not sure [facility] Work Phone: Start: 12-08-2022 Tobacco use and exposure Smokeless tobacco non-user [facility] Progress note 11-20-2023 Note Date & Type Note Facility 11-20-2023 Note HNO ID: [id number] Author: ALCIRA TAY APRN.SLASHER TENDER Service: ? Author Type: Nurse Practitioner Type: Progress Notes Filed: 11/20/2023 15:32 Note Text: Subjective HPI Nontoxic-appearing female presents urgent care chief complaint cough headache chest congestion. Duration of symptoms 6 to 7 days. Associated symptoms listed above. Most prominent symptom today is cough sinus pressure. Has used OTC medications. Was seen here previously. Placed on prednisone. This helped a little bit. Sick contacts similar signs symptoms. Denies any fever body aches chills productive cough chest pain shortness of breath pleuritic pain hemoptysis nausea vomiting abdominal pain change in bowel or bladder habits. Past medical history prescription medication use and allergies reviewed. Not . Not breast-feeding. .Patient presents with: Chest Congestion: cough, headache, seen on 11/14 PAST MEDICAL HISTORY Diagnosis Date Abnormal Pap smear of cervix 11/06/2002 +HPV, [place] Appendicitis, acute 03/27/2021 Bicornuate uterus Gestational diabetes PAST SURGICAL HISTORY Procedure Laterality Date CONIZATION OF CERVIX LEEP EXCISION 11/06/2002 LAPAROSCOPIC APPENDECTOMY 03/27/2021 PAST SURGICAL HISTORY OF WISDOM TEETH ALLERGIES Seasonal Allergies MEDICATIONS MULTI-VITAMIN ORAL Take by mouth. fluticasone propionate (FLONASE NASAL) Use in the nose. loratadine (CLARITIN) 10 mg tablet Take 10 mg by mouth as needed. pantoprazole DR (PROTONIX) 40 mg tablet Take 1 tablet by mouth daily before breakfast. Take on empty stomach, 1/2 hr before meal. (Patient not taking: Reported on 12/08/2022) predniSONE (DELTASONE) 10 mg tablet Take 4 tablets day 1 and 2, then take 3 tablets day 3 and 4 then take 2 tablets day day 5 and 6 (Patient not taking: Reported on 03/19/2021 ) triamcinolone acetonide (KENALOG) 0.1 % cream Apply 1 application to affected area three times daily. Apply sparingly to area for rash/itching. (Patient not taking: Reported on 03/19/2021 ) FISH OIL-DHA-EPA ORAL Take by mouth. (Patient not taking: Reported on 12/08/2022) Etonogestrel-Ethinyl Estradiol (NUVARING) 0.12-0.015 mg/24 hr vaginal ring Use 1 Each vaginally as directed. (Patient not taking: Reported on 03/19/2021 ) Ocjblxix-Ep-Bws-Fe-FA tab Take 1 tablet by mouth. (Patient not taking: Reported on 03/19/2021 ) DOCOSAHEXANOIC ACID (DHA ORAL) Take by mouth. (Patient not taking: Reported on 03/19/2021 ) FAMILY HISTORY Problem Relation Age of Onset Hypertension Father Alcohol/Drug Father Breast Cancer Maternal Grandmother Hypertension Maternal Grandmother Arthritis Maternal Grandfather Diabetes Maternal Grandfather Heart Maternal Grandfather Hypertension Maternal Grandfather Lipids Maternal Grandfather Heart Paternal Grandmother Alcohol/Drug Paternal Grandfather Thyroid Paternal Aunt Social History Tobacco Use Smoking status: Never Smokeless tobacco: Never Substance Use Topics Alcohol use: Yes Comment: OCCASIONALLY ONCE A WEEK, BUT NOT WHILE Drug use: No BP 124/80 Pulse 70 Temp 36.6 ?C (97.8 ?F) Resp 16 Wt 75.3 kg (166 lb) LMP 03/04/2021 SpO2 98% BMI 27.62 kg/m? Review of Systems Constitutional: Positive for malaise/fatigue. Negative for chills and fever. HENT: Positive for congestion and sinus pain. Negative for ear discharge, ear pain and sore throat. Eyes: Negative for blurred vision, pain, discharge and redness. Respiratory: Positive for cough. Negative for hemoptysis, sputum production, shortness of breath, wheezing and stridor. Cardiovascular: Negative for chest pain. Gastrointestinal: Negative for abdominal pain, diarrhea, nausea and vomiting. Musculoskeletal: Positive for myalgias. Skin: Negative for itching and rash. Neurological: Positive for headaches. Negative for dizziness. Objective Physical Exam Constitutional: General: She is not in acute distress. Appearance: She is not diaphoretic. HENT: Head: Normocephalic. Jaw: No trismus, tenderness, swelling or pain on movement. Right Ear: Tympanic membrane, ear canal and external ear normal. Left Ear: Tympanic membrane, ear canal and external ear normal. Nose: Congestion present. Right Sinus: Maxillary sinus tenderness present. Left Sinus: Maxillary sinus tenderness present. Mouth/Throat: Mouth: Mucous membranes are moist. Pharynx: Oropharynx is clear. Uvula midline. No pharyngeal swelling, oropharyngeal exudate, posterior oropharyngeal erythema or uvula swelling. Eyes: Conjunctiva/sclera: Conjunctivae normal. Pupils: Pupils are equal, round, and reactive to light. Cardiovascular: Rate and Rhythm: Normal rate and regular rhythm. Heart sounds: Normal heart sounds. Pulmonary: Effort: Pulmonary effort is normal. No tachypnea, accessory muscle usage or respiratory distress. Breath sounds: Normal breath sounds. No stridor. No wheezing, rhonchi or rales (more content not included)... [facility] Progress note 11-14-2023 Note Date & Type Note Facility 11-14-2023 Note HNO ID: [id number] Author: ZOË SULLIVAN APRN.SLASHER TENDER Service: ? Author Type: Nurse Practitioner Type: Progress Notes Filed: 11/14/2023 18:46 Note Text: Subjective HPI HPI Melissa Solomon is a 43 year old female who presents today for CC of ear pain, cough, congestion. This started 1 day ago. Has tried nothing for relief. Symptoms are worsened by nothing. Risk factors sick exposures at home. Denies possibility of being . nonsmoker. .Patient presents with: Ear Pain: Bilateral ear pain and cough x 1 day PAST MEDICAL HISTORY Diagnosis Date Abnormal Pap smear of cervix 11/06/2002 +HPV, [place] Appendicitis, acute 03/27/2021 Bicornuate uterus Gestational diabetes PAST SURGICAL HISTORY Procedure Laterality Date CONIZATION OF CERVIX LEEP EXCISION 11/06/2002 LAPAROSCOPIC APPENDECTOMY 03/27/2021 PAST SURGICAL HISTORY OF WISDOM TEETH ALLERGIES Seasonal Allergies MEDICATIONS MULTI-VITAMIN ORAL Take by mouth. fluticasone propionate (FLONASE NASAL) Use in the nose. loratadine (CLARITIN) 10 mg tablet Take 10 mg by mouth as needed. predniSONE (DELTASONE) 20 mg tablet Take 2 tablets by mouth once daily for [address] (PROTONIX) 40 mg tablet Take 1 tablet by mouth daily before breakfast. Take on empty stomach, 1/2 hr before meal. (Patient not taking: Reported on 12/08/2022) predniSONE (DELTASONE) 10 mg tablet Take 4 tablets day 1 and 2, then take 3 tablets day 3 and 4 then take 2 tablets day day 5 and 6 (Patient not taking: Reported on 03/19/2021 ) triamcinolone acetonide (KENALOG) 0.1 % cream Apply 1 application to affected area three times daily. Apply sparingly to area for rash/itching. (Patient not taking: Reported on 03/19/2021 ) FISH OIL-DHA-EPA ORAL Take by mouth. (Patient not taking: Reported on 12/08/2022) Etonogestrel-Ethinyl Estradiol (NUVARING) 0.12-0.015 mg/24 hr vaginal ring Use 1 Each vaginally as directed. (Patient not taking: Reported on 03/19/2021 ) Nobctgus-Tx-Nye-Fe-FA tab Take 1 tablet by mouth. (Patient not taking: Reported on 03/19/2021 ) DOCOSAHEXANOIC ACID (DHA ORAL) Take by mouth. (Patient not taking: Reported on 03/19/2021 ) FAMILY HISTORY Problem Relation Age of Onset Hypertension Father Alcohol/Drug Father Breast Cancer Maternal Grandmother Hypertension Maternal Grandmother Arthritis Maternal Grandfather Diabetes Maternal Grandfather Heart Maternal Grandfather Hypertension Maternal Grandfather Lipids Maternal Grandfather Heart Paternal Grandmother Alcohol/Drug Paternal Grandfather Thyroid Paternal Aunt Social History Tobacco Use Smoking status: Never Smokeless tobacco: Never Substance Use Topics Alcohol use: Yes Comment: OCCASIONALLY ONCE A WEEK, BUT NOT WHILE Drug use: No Review of Systems Constitutional: Negative for fever. HENT: Positive for congestion, ear pain and sore throat. Negative for ear discharge and nosebleeds. Respiratory: Positive for cough. Negative for shortness of breath and wheezing. Cardiovascular: Negative for chest pain. Musculoskeletal: Negative for neck pain. Skin: Negative for itching and rash. Objective Blood pressure 126/82, pulse 87, temperature 37.1 ?C (98.7 ?F), temperature source Tympanic, resp. rate 16, weight 78.5 kg (173 lb), last menstrual period 03/04/2021, SpO2 100%. Physical Exam Constitutional: General: She is not in acute distress. Appearance: She is not toxic-appearing or diaphoretic. HENT: Head: Normocephalic and atraumatic. Right Ear: Hearing, tympanic membrane, ear canal and external ear normal. Left Ear: Hearing, tympanic membrane, ear canal and external ear normal. Nose: Nose normal. Mouth/Throat: Pharynx: Uvula midline. No pharyngeal swelling, oropharyngeal exudate, posterior oropharyngeal erythema or uvula swelling. Eyes: General: Lids are normal. No scleral icterus. Right eye: No discharge. Left eye: No discharge. Conjunctiva/sclera: Conjunctivae normal. Pupils: Pupils are equal, round, and reactive to light. Neck: Trachea: Trachea normal. Cardiovascular: Rate and Rhythm: Normal rate and regular rhythm. Heart sounds: Normal heart sounds. Pulmonary: Effort: Pulmonary effort is normal. Breath sounds: Normal breath sounds. Musculoskeletal: Cervical back: Normal range of motion and neck supple. Lymphadenopathy: Cervical: No cervical adenopathy. Right cervical: No superficial cervical adenopathy. Left cervical: No superficial cervical adenopathy. Skin: Findings: No rash. Neurological: Mental Status: She is alert and oriented to person, place, and time. ASSESSMENT/PLAN: 1. URI, acute - ICD9: 465.9, ICD10: J06.9 - Discussed viral etiology and rationale for treatment. - Symptomatic treatment with prn analgesia - Supportive care with fluids and rest - Follow up in 3-5 days if symptoms persist or sooner if worsening of symptoms -declines covid testing - (more content not included)... [facility] Progress note 06-30-2023 Note Date & Type Note Facility 06-30-2023 Note HNO ID: [id number] Author: Alcira Tay APRN.SLASHER TENDER Service: ? Author Type: Nurse Practitioner Type: Progress Notes Filed: 06/30/2023 4:41 PM Note Text: Subjective HPI Nontoxic-appearing female presents urgent care chief complaint rash. Duration of symptoms 2 days. Associated symptoms pain and stinging burning rash. Patient states had poison christin last week or week before that has improved. Presents today with new rash in axillary region chest and scapular region. States has not had any recent medication changes or antibiotic use. Overall feels well. Denies any itching. Most prominent symptom today is burning stinging sensation. Denies chance of . Is not breast-feeding. Denies any fever body aches chills productive cough chest pain shortness of breath pleuritic pain hemoptysis nausea vomiting abdominal pain change in bowel or bladder habits. Past medical history prescription medication use and allergies reviewed. .Patient presents with: Rash: R armpit x2 days, possibly from poison christin PAST MEDICAL HISTORY Diagnosis Date Abnormal Pap smear of cervix 11/06/2002 +HPV, [place] Appendicitis, acute 03/27/2021 Bicornuate uterus Gestational diabetes PAST SURGICAL HISTORY Procedure Laterality Date CONIZATION OF CERVIX LEEP EXCISION 11/06/2002 LAPAROSCOPIC APPENDECTOMY 03/27/2021 PAST SURGICAL HISTORY OF WISDOM TEETH ALLERGIES Seasonal Allergies MEDICATIONS MULTI-VITAMIN ORAL Take by mouth. fluticasone propionate (FLONASE NASAL) Use in the nose. loratadine (CLARITIN) 10 mg tablet Take 10 mg by mouth as needed. pantoprazole DR (PROTONIX) 40 mg tablet Take 1 tablet by mouth daily before breakfast. Take on empty stomach, 1/2 hr before meal. (Patient not taking: Reported on 12/08/2022) predniSONE (DELTASONE) 10 mg tablet Take 4 tablets day 1 and 2, then take 3 tablets day 3 and 4 then take 2 tablets day day 5 and 6 (Patient not taking: Reported on 03/19/2021 ) triamcinolone acetonide (KENALOG) 0.1 % cream Apply 1 application to affected area three times daily. Apply sparingly to area for rash/itching. (Patient not taking: Reported on 03/19/2021 ) FISH OIL-DHA-EPA ORAL Take by mouth. (Patient not taking: Reported on 12/08/2022) Etonogestrel-Ethinyl Estradiol (NUVARING) 0.12-0.015 mg/24 hr vaginal ring Use 1 Each vaginally as directed. (Patient not taking: Reported on 03/19/2021 ) Bmochaft-Mx-Trj-Fe-FA tab Take 1 tablet by mouth. (Patient not taking: Reported on 03/19/2021 ) DOCOSAHEXANOIC ACID (DHA ORAL) Take by mouth. (Patient not taking: Reported on 03/19/2021 ) FAMILY HISTORY Problem Relation Age of Onset Hypertension Father Alcohol/Drug Father Breast Cancer Maternal Grandmother Hypertension Maternal Grandmother Arthritis Maternal Grandfather Diabetes Maternal Grandfather Heart Maternal Grandfather Hypertension Maternal Grandfather Lipids Maternal Grandfather Heart Paternal Grandmother Alcohol/Drug Paternal Grandfather Thyroid Paternal Aunt Social History Tobacco Use Smoking status: Never Smokeless tobacco: Never Substance Use Topics Alcohol use: Yes Comment: OCCASIONALLY ONCE A WEEK, BUT NOT WHILE Drug use: No BP 166/91 Pulse 82 Temp 36.7 ?C (98.1 ?F) Resp 18 Wt 76.8 kg (169 lb 6.4 oz) LMP 03/04/2021 SpO2 98% BMI 28.19 kg/m? Review of Systems Constitutional: Negative for chills, fever and malaise/fatigue. HENT: Negative for congestion, ear discharge, ear pain, sinus pain and sore throat. Eyes: Negative for blurred vision, pain, discharge and redness. Respiratory: Negative for cough, hemoptysis, sputum production, shortness of breath, wheezing and stridor. Cardiovascular: Negative for chest pain. Gastrointestinal: Negative for abdominal pain, diarrhea, nausea and vomiting. Musculoskeletal: Negative for myalgias. Skin: Positive for rash. Negative for itching. Neurological: Negative for dizziness and headaches. Objective Physical Exam Constitutional: General: She is not in acute distress. Appearance: She is not toxic-appearing. HENT: Head: Normocephalic. Nose: Nose normal. Mouth/Throat: Mouth: Mucous membranes are moist. Pharynx: Oropharynx is clear. No oropharyngeal exudate or posterior oropharyngeal erythema. Eyes: Pupils: Pupils are equal, round, and reactive to light. Cardiovascular: Rate and Rhythm: Normal rate. Pulmonary: Effort: Pulmonary effort is normal. No respiratory distress. Breath sounds: No wheezing or rales. Musculoskeletal: Cervical back: Normal range of motion. Skin: General: Skin is warm and dry. Comments: Macular papular erythematous base rash with fluid-filled lesions noted highlighted areas. Rash does not cross midline. No desquamation of skin. No mucosal membrane involvement. Rash does not cross midline. No evidence of infection. Neurological: General: No focal deficit present. Mental Status: She (more content not included)... [facility] Progress note 12-08-2022 Note Date & Type Note Facility 12-08-2022 Note HNO ID: [id number] Author: Zoë Sullivan APRN.SLASHER TENDER Service: ? Author Type: Nurse Practitioner Type: Progress Notes Filed: 12/08/2022 9:47 AM Note Text: Subjective HPI HPI Melissa Solomon is a 42 year old female who presents today for CC of st, fatigue, weakness. This started 1 day ago. Has tried otc medication for relief. Symptoms are worsened by nothing. Risk factors recent strep exposure at home. .Patient presents with: Sore Throat: Fatigue, weakness, EARLY x 1 day PAST MEDICAL HISTORY Diagnosis Date Abnormal Pap smear of cervix 11/06/2002 +HPV, [place] Appendicitis, acute 03/27/2021 Bicornuate uterus Gestational diabetes PAST SURGICAL HISTORY Procedure Laterality Date CONIZATION OF CERVIX LEEP EXCISION 11/06/2002 LAPAROSCOPIC APPENDECTOMY 03/27/2021 PAST SURGICAL HISTORY OF WISDOM TEETH ALLERGIES Seasonal Allergies MEDICATIONS MULTI-VITAMIN ORAL Take by mouth. fluticasone propionate (FLONASE NASAL) Use in the nose. loratadine (CLARITIN) 10 mg tablet Take 10 mg by mouth as needed. pantoprazole DR (PROTONIX) 40 mg tablet Take 1 tablet by mouth daily before breakfast. Take on empty stomach, 1/2 hr before meal. (Patient not taking: Reported on 12/08/2022) predniSONE (DELTASONE) 10 mg tablet Take 4 tablets day 1 and 2, then take 3 tablets day 3 and 4 then take 2 tablets day day 5 and 6 (Patient not taking: Reported on 03/19/2021 ) triamcinolone acetonide (KENALOG) 0.1 % cream Apply 1 application to affected area three times daily. Apply sparingly to area for rash/itching. (Patient not taking: Reported on 03/19/2021 ) FISH OIL-DHA-EPA ORAL Take by mouth. (Patient not taking: Reported on 12/08/2022) Etonogestrel-Ethinyl Estradiol (NUVARING) 0.12-0.015 mg/24 hr vaginal ring Use 1 Each vaginally as directed. (Patient not taking: Reported on 03/19/2021 ) Yydmejer-Dh-Oft-Fe-FA tab Take 1 tablet by mouth. (Patient not taking: Reported on 03/19/2021 ) DOCOSAHEXANOIC ACID (DHA ORAL) Take by mouth. (Patient not taking: Reported on 03/19/2021 ) FAMILY HISTORY Problem Relation Age of Onset Hypertension Father Alcohol/Drug Father Breast Cancer Maternal Grandmother Hypertension Maternal Grandmother Arthritis Maternal Grandfather Diabetes Maternal Grandfather Heart Maternal Grandfather Hypertension Maternal Grandfather Lipids Maternal Grandfather Heart Paternal Grandmother Alcohol/Drug Paternal Grandfather Thyroid Paternal Aunt Social History Tobacco Use Smoking status: Never Smokeless tobacco: Never Substance Use Topics Alcohol use: Yes Comment: OCCASIONALLY ONCE A WEEK, BUT NOT WHILE Drug use: No Review of Systems Constitutional: Positive for chills and malaise/fatigue. Negative for fever. HENT: Positive for congestion and sore throat. Negative for ear pain and nosebleeds. Respiratory: Negative for cough, shortness of breath and wheezing. Cardiovascular: Negative for chest pain. Musculoskeletal: Negative for neck pain. Skin: Negative for itching and rash. Objective Blood pressure 108/64, pulse 75, temperature (!) 35.7 ?C (96.3 ?F), resp. rate 21, weight 74 kg (163 lb 3.2 oz), last menstrual period 03/04/2021, SpO2 97 %. Physical Exam Constitutional: General: She is not in acute distress. Appearance: She is not toxic-appearing or diaphoretic. HENT: Head: Normocephalic and atraumatic. Nose: Nose normal. Mouth/Throat: Pharynx: Uvula midline. No pharyngeal swelling, oropharyngeal exudate, posterior oropharyngeal erythema or uvula swelling. Eyes: General: Lids are normal. No scleral icterus. Right eye: No discharge. Left eye: No discharge. Conjunctiva/sclera: Conjunctivae normal. Pupils: Pupils are equal, round, and reactive to light. Neck: Trachea: Trachea normal. Cardiovascular: Rate and Rhythm: Normal rate and regular rhythm. Heart sounds: Normal heart sounds. Pulmonary: Effort: Pulmonary effort is normal. Breath sounds: Normal breath sounds. Musculoskeletal: Cervical back: Normal range of motion and neck supple. Lymphadenopathy: Cervical: No cervical adenopathy. Right cervical: No superficial cervical adenopathy. Left cervical: No superficial cervical adenopathy. Skin: Findings: No rash. Neurological: Mental Status: She is alert and oriented to person, place, and time. ASSESSMENT/PLAN: 1. Sore throat - ICD9: 462, ICD10: J02.9 - suspect viral - Alere Strep Test neg, no culture pending - Discussed supportive care treatment with fluids, rest and analgesia. - The patient should follow up in 3-5 days if symptoms persist or worsen -declines flu/covid testing. - STREP A MOLECULAR (POC) Zoë Sullivan APRN.CNP [facility] History of Present illness Narrative 12-08-2022 Zoë Sullivan APRN.KALYN - 12/08/2022 9:45 AM EST Note Date & Type Note Facility 12-08-2022 History of Presen t illness Narrative Subjective HPI HPI Melissa Solomon is a 42 year old female who presents today for CC of st, fatigue, weakness. This started 1 day ago. Has tried otc medication for relief. Symptoms are worsened by nothing. Risk factors recent strep exposure at home. .Patient presents with: Sore Throat: Fatigue, weakness, EARLY x 1 day PAST MEDICAL HISTORY Diagnosis Date Abnormal Pap smear of cervix 11/06/2002 +HPV, [place], [place] Appendicitis, acute 03/27/2021 Bicornuate uterus Gestational diabetes PAST SURGICAL HISTORY Procedure Laterality Date CONIZATION OF CERVIX LEEP EXCISION 11/06/2002 LAPAROSCOPIC APPENDECTOMY 03/27/2021 PAST SURGICAL HISTORY OF WISDOM TEETH ALLERGIES Seasonal Allergies MEDICATIONS MULTI-VITAMIN ORAL Take by mouth. fluticasone propionate (FLONASE NASAL) Use in the nose. loratadine (CLARITIN) 10 mg tablet Take 10 mg by mouth as needed. pantoprazole DR (PROTONIX) 40 mg tablet Take 1 tablet by mouth daily before breakfast. Take on empty stomach, 1/2 hr before meal. (Patient not taking: Reported on 12/08/2022) predniSONE (DELTASONE) 10 mg tablet Take 4 tablets day 1 and 2, then take 3 tablets day 3 and 4 then take 2 tablets day day 5 and 6 (Patient not taking: Reported on 03/19/2021 ) triamcinolone acetonide (KENALOG) 0.1 % cream Apply 1 application to affected area three times daily. Apply sparingly to area for rash/itching. (Patient not taking: Reported on 03/19/2021 ) FISH OIL-DHA-EPA ORAL Take by mouth. (Patient not taking: Reported on 12/08/2022) Etonogestrel-Ethinyl Estradiol (NUVARING) 0.12-0.015 mg/24 hr vaginal ring Use 1 Each vaginally as directed. (Patient not taking: Reported on 03/19/2021 ) Abzsqebk-Fn-Qvv-Fe-FA tab Take 1 tablet by mouth. (Patient not taking: Reported on 03/19/2021 ) DOCOSAHEXANOIC ACID (DHA ORAL) Take by mouth. (Patient not taking: Reported on 03/19/2021 ) FAMILY HISTORY Problem Relation Age of Onset Hypertension Father Alcohol/Drug Father Breast Cancer Maternal Grandmother Hypertension Maternal Grandmother Arthritis Maternal Grandfather Diabetes Maternal Grandfather Heart Maternal Grandfather Hypertension Maternal Grandfather Lipids Maternal Grandfather Heart Paternal Grandmother Alcohol/Drug Paternal Grandfather Thyroid Paternal Aunt Social History Tobacco Use Smoking status: Never Smokeless tobacco: Never Substance Use Topics Alcohol use: Yes Comment: OCCASIONALLY ONCE A WEEK, BUT NOT WHILE Drug use: No Review of Systems Constitutional: Positive for chills and malaise/fatigue. Negative for fever. HENT: Positive for congestion and sore throat. Negative for ear pain and nosebleeds. Respiratory: Negative for cough, shortness of breath and wheezing. Cardiovascular: Negative for chest pain. Musculoskeletal: Negative for neck pain. Skin: Negative for itching and rash. Objective Blood pressure 108/64, pulse 75, temperature (!) 35.7 C (96.3 F), resp. rate 21, weight 74 kg (163 lb 3.2 oz), last menstrual period 03/04/2021, SpO2 97 %. Physical Exam Constitutional: General: She is not in acute distress. Appearance: She is not toxic-appearing or diaphoretic. HENT: Head: Normocephalic and atraumatic. Nose: Nose normal. Mouth/Throat: Pharynx: Uvula midline. No pharyngeal swelling, oropharyngeal exudate, posterior oropharyngeal erythema or uvula swelling. Eyes: General: Lids are normal. No scleral icterus. Right eye: No discharge. Left eye: No discharge. Conjunctiva/sclera: Conjunctivae normal. Pupils: Pupils are equal, round, and reactive to light. Neck: Trachea: Trachea normal. Cardiovascular: Rate and Rhythm: Normal rate and regular rhythm. Heart sounds: Normal heart sounds. Pulmonary: Effort: Pulmonary effort is normal. Breath sounds: Normal breath sounds. Musculoskeletal: Cervical back: Normal range of motion and neck supple. Lymphadenopathy: Cervical: No cervical adenopathy. Right cervical: No superficial cervical adenopathy. Left cervical: No superficial cervical adenopathy. Skin: Findings: No rash. Neurological: Mental Status: She is alert and oriented to person, place, and time. ASSESSMENT/PLAN: 1. Sore throat - ICD9: 462, ICD10: J02.9 - suspect viral - Alere Strep Test neg, no culture pending - Discussed supportive care treatment with fluids, rest and analgesia. - The patient should follow up in 3-5 days if symptoms persist or worsen -declines flu/covid testing. - STREP A MOLECULAR (POC) Zoë Sullivan APRN.KALYN documented in this encounter [facility] History of Present illness Narrative 05-18-2022 Alcira Tay APRN.CNP - 05/18/2022 9:14 AM EDT Note Date & Type Note Facility 05-18-2022 History of Presen t illness Narrative Images from the original note were not included. Subjective HPI Nontoxic-appearing female presents urgent care chief complaint cat bite. Duration of symptoms 2 days. Associated symptoms pain puncture wound noted right forearm. Patient states she was petting a stray cat when the cat bit her on the right forearm. States she washed the area. Presents today for evaluation. States area is slightly painful. It is bruised. Denies any systemic symptoms. States overall she feels well. No new numbness or tingling in her hand. No foreign body sensation. Denies any fever body aches chills nausea vomiting abdominal pain change in bowel or bladder habits. Denies chance of . Is not breast-feeding. Past medical history prescription medication use and allergies reviewed. .Patient presents with: Cat Bite: right forearm x 2 days PAST MEDICAL HISTORY Diagnosis Date Abnormal Pap smear of cervix 11/06/2002 +HPV, [place] Appendicitis, acute 03/27/2021 Bicornuate uterus Gestational diabetes PAST SURGICAL HISTORY Procedure Laterality Date CONIZATION OF CERVIX LEEP EXCISION 11/06/2002 LAPAROSCOPIC APPENDECTOMY 03/27/2021 PAST SURGICAL HISTORY OF WISDOM TEETH ALLERGIES Seasonal Allergies MEDICATIONS pantoprazole DR (PROTONIX) 40 mg tablet Take 1 tablet by mouth daily before breakfast. Take on empty stomach, 1/2 hr before meal. MULTI-VITAMIN ORAL Take by mouth. FISH OIL-DHA-EPA ORAL Take by mouth. fluticasone propionate (FLONASE NASAL) Use in the nose. loratadine (CLARITIN) 10 mg tablet Take 10 mg by mouth as needed. predniSONE (DELTASONE) 10 mg tablet Take 4 tablets day 1 and 2, then take 3 tablets day 3 and 4 then take 2 tablets day day 5 and 6 triamcinolone acetonide (KENALOG) 0.1 % cream Apply 1 application to affected area three times daily. Apply sparingly to area for rash/itching. Etonogestrel-Ethinyl Estradiol (NUVARING) 0.12-0.015 mg/24 hr vaginal ring Use 1 Each vaginally as directed. Aiwclwsm-Pg-Ppj-Fe-FA tab Take 1 tablet by mouth. DOCOSAHEXANOIC ACID (DHA ORAL) Take by mouth. FAMILY HISTORY Problem Relation Age of Onset Hypertension Father Alcohol/Drug Father Breast Cancer Maternal Grandmother Hypertension Maternal Grandmother Arthritis Maternal Grandfather Diabetes Maternal Grandfather Heart Maternal Grandfather Hypertension Maternal Grandfather Lipids Maternal Grandfather Heart Paternal Grandmother Alcohol/Drug Paternal Grandfather Thyroid Paternal Aunt Social History Tobacco Use Smoking status: Never Smoker Smokeless tobacco: Never Used Substance Use Topics Alcohol use: Yes Comment: OCCASIONALLY ONCE A WEEK, BUT NOT WHILE Drug use: No BP 122/72 Pulse 90 Temp 36.6 C (97.9 F) Resp 16 Wt 70.8 kg (156 lb) LMP 03/04/2021 SpO2 99% BMI 25.96 kg/m Review of Systems Constitutional: Negative for chills, fever and malaise/fatigue. HENT: Negative for congestion, ear discharge, ear pain, sinus pain and sore throat. Eyes: Negative for blurred vision, pain, discharge and redness. Respiratory: Negative for cough, hemoptysis, sputum production, shortness of breath, wheezing and stridor. Cardiovascular: Negative for chest pain. Gastrointestinal: Negative for abdominal pain, diarrhea, nausea and vomiting. Musculoskeletal: Negative for myalgias. Skin: Negative for itching and rash. Neurological: Negative for dizziness and headaches. Objective Physical Exam Constitutional: General: She is not in acute distress. Appearance: She is not diaphoretic. HENT: Head: Normocephalic. Eyes: Conjunctiva/sclera: Conjunctivae normal. Pupils: Pupils are equal, round, and reactive to light. Cardiovascular: Rate and Rhythm: Normal rate and regular rhythm. Heart sounds: Normal heart sounds. Pulmonary: Effort: Pulmonary effort is normal. No tachypnea, accessory muscle usage or respiratory distress. Breath sounds: Normal breath sounds. No stridor. Abdominal: Palpations: Abdomen is soft. Tenderness: There is no abdominal tenderness. Musculoskeletal: Cervical back: Normal range of motion and neck supple. No rigidity or tenderness. Lymphadenopathy: Cervical: No cervical adenopathy. Skin: General: Skin is warm and dry. Comments: 3 punctures wounds noted anterior forearm. No surrounding erythema. No drainage. No foreign bodies noted on palpation. No axillary adenopathy. No streaking. No fluctuance. Neurological: Mental Status: She is alert and oriented to person, place, and time. ASSESSMENT/PLAN: 1. Cat bite, initial encounter - ICD9: 879.8, E906.3, ICD10: W55.01XA Patient diagnosed with cat bite. Tetanus shot will be updated. Will be started on Augmentin prophylactically. Was encouraged to follow-up with the ED or PCP for further rabies prophylaxis due to unprovoked bite from stray cat. Patient verbalized understand agrees with the plan of care. Alcira Tay APRN.KALYN documented in this encounter [facility] History of Past illness Narrative 12-05-2016 Note Date & Type Note Facility documented as of this encounter (statuses as of 05/18/2022) [facility] History of Past illness Narrative 12-05-2016 Note Date & Type Note Facility documented as of this encounter (statuses as of 12/08/2022) [facility] Evaluation note Note Date & Type Note Facility documented in this encounter [facility] Evaluation note Note Date & Type Note Facility documented in this encounter [facility] Summary Purpose Family History No Family History Records FoundNo Family History Records Found Advance Directives No Advanced Directives Records FoundNo Advanced Directives Records Found Additional Source Comments INFORMATION SOURCE (unrecogn ized section and content) DATE CREATED AUTHOR AUTHOR'S ORGANDINORAH ATION 11/21/2023 [facility] Source Comments (unrecognize d section and content) In the event this informatio n is protected by the Federal Confidentiality of Alcohol and Drug Abuse Patient Records regulations: The Federal rules restrict any use of the information to criminally investigate or prosecute any alcohol or drug abuse patient.[facility] the event this information is protected by the Federal Confidentiality of Alcohol and Drug Abuse Patient Records regulations: The Federal rules restrict any use of the information to criminally investigate or prosecute any alcohol or drug abuse patient.[facility] Reason for Visit (unrecogniz ed section and content) Reason Comments Sore Throat Fatigue, weakness, H A x 1 day Care Teams (unrecognized sec tion and content) Project Manager Retail Relationship Specialty Start Date End Date Mirna Hillman MD [address] [place] [address] PCP - General Internal Medicine 05/18/22 FOR RECORDS PERTAINING TO PATIENTS WHO ARE OR HAVE BEEN ENROLLED IN A CHEMICAL DEPENDENCY/SUBSTANCEABUSE PROGRAM, SOME INFORMATION MAY BE OMITTED. This clinical summary was aggregated from multiple sources. Caution should be exercised in using it in the provision of clinical care. This summary normalizes information from multiple sources, and as a consequence, information in this document may materially change the coding, format and clinical context of patient data. In addition, data may be omitted in some cases. CLINICAL DECISIONS SHOULD BE BASED ON THE PRIMARY CLINICAL RECORDS. [facility]. provides no warranty or guarantee of the accuracy or completeness of information in this document.
== END | disposition home or self-care (01) ==
LOC: OPBI 11:56
PROVIDERS: PCP Internal Medicine; Referring Provider Nurse Practitioner Women's Health; Visit Provider Nurse Practitioner Women's Health
DX: Z12.31 Encounter for screening mammogram for malignant neoplasm of breast (principal)
CPT/HCPCS: 77063; 77067

== ENCOUNTER → 2025-04-02 | Outpatient (CLI) | payer OTHER, SELFPAY ==
--- NOTE | 2025-04-02 10:00 | BI_ITS ---
EXAM: SCRN MAMM (CAD)W/JONATHAN BILAT 04/02/2025 CLINICAL HISTORY: F, Age 44 y/o , SCREEN FOR BREAST CANCER TECHNIQUE: Bilateral screening digital breast tomosynthesis with 2D and 3D images. Computer aided detection. COMPARISON: Prior exam(s) dated 11/30/2023, 11/21/2022. FINDINGS: TISSUE DENSITY: The breast tissue is composed of scattered area of fibroglandular density. Bilateral Breast Mammographic Findings: No significant masses, calcifications or other abnormalities are identified. BI/SCRN MAMM (CAD)W/JONATHAN BILAT IMPRESSION: Right Breast: BIRADS 1 NEGATIVE. Left Breast: BIRADS 1 NEGATIVE. OVERALL FINAL ASSESSMENT: BIRADS 1 NEGATIVE. RECOMMENDATION: Routine annual follow-up in 1 Year A letter with findings and recommendations will be mailed to the patient. Reading Location: [id number]
== END | disposition home or self-care (01) ==
PROVIDERS: PCP Internal Medicine; Referring Provider Nurse Practitioner Women's Health; Visit Provider Nurse Practitioner Women's Health
DX: Z12.31 Encounter for screening mammogram for malignant neoplasm of breast (principal)
CPT/HCPCS: 77063; 77067